=== PATIENT | male | born 2000 | race Caucasian/White ===

== ENCOUNTER 2025-08-27 14:02 | Emergency (ER) | payer OTHER, SELFPAY ==
--- NOTE | 2025-08-27 14:06 | ED_ITS ---
HPI - Extremity Problem General Chief complaint: Extremity Problem,Nontraumatic Stated complaint: area on left foot hurts Time Seen by Provider: 08/27/25 14:14 Source: patient, RN notes reviewed and old records reviewed Mode of arrival: ambulatory Limitations: no limitations History of Present Illness HPI Narrative: 25-year-old male presents to the [facility] with complaints of a red itchy area to the left medial aspect of the foot and ankle into the posterior aspect. States it is been there since 2018. Has used anti-itch cream Onset (ago): year(s) (7 ) Related Data Allergies Allergy/AdvReac Type Severity Reaction Status Date / Time No Known Allergies Allergy Verified 08/27/25 14:16 Review of Systems Review of Systems: All systems reviewed & are unremarkable except as noted in HPI and below Constitutional: Constitutional: Reports no additional constitutional complaints Musculoskeletal: Musculoskeletal: Reports no additional musculoskeletal complaints Integumentary/Breasts: Skin/Breast: Reports as per HPI and Reports rash PMFSH Comments At the time of my signature, I reviewed and agree with the nursing past medical, surgical, social, and family history. There is no relevant family history pertinent to the patient complaint. Exam Const: General: cooperative, healthy appearing, comfortable, no acute distress, well developed, alert and well nourished Nutritional Appearance: well nourished Orientation/consciousness: patient oriented x3 Limitations: no limitations HENMT: Head: normal to inspection Eyes: General: appearance normal, both eyes and all related structures Alignment and Position: alignment normal Neck: Neck: normal visual inspection, full ROM, no lymphadenopathy and no meningeal signs Chest: Chest palpation & inspection: normal inspection of the chest Resp: Effort & Inspection: normal respiratory effort and able to speak in complete sentences Cardio: Rate: regular rate Skin: General skin exam: normal color and no rashes or lesions noted Rashes: rashes noted (left medial ankle/ foot.) Neuro: General: patient oriented x3, gait normal, moves all extremities and no meningeal signs Cognition (Neuro): normal cognition Speech: normal speech Gait exam (Neuro): Normal gait present Extrem: General: normal to inspection, full ROM, capillary refill normal and normal gait Psych: Appearance: grossly normal and well kempt Mental Status: mental status grossly normal Speech and movement: Normal speech and movement present and Clear speech present Affect: normal affect Attitude: cooperative Course Course Level of Care: Express Care Visit Vital Signs Vital signs: Vital Signs Temperature 97.9 F 08/27/25 14:10 Pulse Rate 100 08/27/25 14:10 Respiratory Rate 20 08/27/25 14:10 Blood Pressure 132/82 08/27/25 14:10 Pulse Oximetry 100 08/27/25 14:10 Oxygen Delivery Room Air 08/27/25 14:10 Temperature 97.9 F 08/27/25 14:10 Pulse Rate 100 08/27/25 14:10 Respiratory Rate 20 08/27/25 14:10 Blood Pressure 132/82 08/27/25 14:10 Pulse Oximetry 100 08/27/25 14:10 Oxygen Delivery Room Air 08/27/25 14:10 Reviewed MDM - Extremity (Nontraumatic) MDM Narrative Medical decision making narrative: Patient sitting in exam room. Patient is nontoxic, vitals stable. Patient presents with a 7 year rash to the left lower leg. States that as being very itchy. Area is plaque like, mild raised. No signs of cellulitis. Exam consistent with psoriasis. Patient appropriate for outpatient treatment with very close follow-up, handout given for primary care providers. Discharge instructions reviewed with patient, as well as provided in writing per nursing staff. The instructions also include specific and strict return/GO TO THE ER as well as f/u information. All questions have been answered, and the patient deny any further questions with discharge and discharge plan. Some parts of this dictation were generated by voice recognition software and may contain typographical and/or grammatical inaccuracies. Differential Diagnosis Differential diagnosis: Likely gout, cellulitis and other (Eczema, psoriasis) Critical Care Time Critical Care Time Critical Care Time: No Discharge Plan Discharge Clinical Impression: Psoriasis Patient Disposition: Home Condition: Stable Instructions: Antibiotic Form, Psoriasis (ED) Additional Instructions: Keep area clean and dry. Wash with warm soapy water, pat dry and apply the cream sparingly. More is not better with this medication. During the day you can use a good moisturizing lotion such as Eucerin or Aveeno Applying ice every 2-3 hours can help with inflammation and itching Most important part of your care is following up with a primary care provider or a radio repairer domestic. Please look on the back of your insurance card to look up providers that would be the in your network. Patient Language: Vietnamese Prescriptions: New clobetasol 0.05 % cream 1 applic topical BID 14 Days Qty: 60 0RF Follow-up/Referrals: UNKNOWN,DOCTOR [Non-Staff] Time of Disposition: 14:25
[2025-08-27 14:10] VITALS: BP 132/82; PULSE 100; RESP 20; TEMP 36.6; O2SAT 100
== END 2025-08-27 14:28 | disposition home or self-care (01) ==
PROVIDERS: Emergency Provider Nurse Practitioner
DX: L40.9 Psoriasis, unspecified (principal)
CPT/HCPCS: 99203; G0463